=== PATIENT | male | born 1975 | race Caucasian/White ===

== ENCOUNTER 2019-12-03 07:41 | Emergency (ER) | payer SELFPAY ==
[~2019-12-03] VITALS: Ht 172.7 cm; Wt 89.8 kg
[2019-12-03 07:43] VITALS: BP 129/84
[2019-12-03] MEDS ORDERED: IBUPROFEN 800 MG TABLET PO ONE (08:00)
--- NOTE | 2019-12-03 08:00 | NUR ---
flu swab pending, pt c/o 08/19 tejeda bothering him the most, flu like sx, call valladares in reach. as
[2019-12-03] MEDS ORDERED: IBUPROFEN 200 MG TABLET ONE (08:14)
[2019-12-03 08:33] LABS: RAPID INFLUENZA A Negative (Negative); RAPID INFLUENZA B Negative (Negative)
== END 2019-12-03 09:03 | disposition home or self-care (01) ==
LOC: ED 08:32
DX: M79.10 Myalgia, unspecified site (principal); B34.9 Viral infection, unspecified
CPT/HCPCS: 71046; 87400; 93005; 99284